=== PATIENT | female | born 1985 | race Caucasian/White ===

== ENCOUNTER → 2019-08-04 10:19 | Outpatient (CLI) | payer BC, OTHER, SELFPAY ==
[2019-08-04 11:10] LABS: Influenza A - CEPHEID Flu A NEGATIVE (NEGATIVE); Influenza B - CEPHEID Flu B NEGATIVE (NEGATIVE)
== END ==
PROVIDERS: Family Provider Physician Assistant Medical; PCP Physician Assistant Medical; Visit Provider Physician Assistant
DX: R68.89 Other general symptoms and signs (principal); J06.9 Acute upper respiratory infection, unspecified
CPT/HCPCS: 87070; 87502

== ENCOUNTER → 2020-03-12 14:44 | Outpatient (CLI) | payer OTHER, SELFPAY ==
--- NOTE | 2020-03-12 | DI.CT.S_ITS ---
PROCEDURE: CT CHEST W CON INDICATIONS: chest pain TECHNIQUE: After the administration of intravenous contrast, 5 mm thick sections acquired from the pulmonary apices to the posterior costophrenic angles. 1 mm axial lung, 5 mm thick coronal and sagittal reformats and 7 mm axial MIP were acquired. For radiation dose reduction, the following was used: automated exposure control, adjustment of mA and/or kV according to patient size. COMPARISON: None. FINDINGS: Image quality: Excellent. Scattered subsegmental atelectasis and/or scarring. No focal consolidation. A possible sub 5 mm calcified granuloma and scarring seen in the superior segment of the right lower lobe although technically indeterminate. No pleural effusions or pneumothorax. Central and peripheral airways are patent and normal in caliber. Mediastinum: Heart size is normal. No pericardial effusion. No mediastinal or hilar adenopathy by size criteria. Thoracic aorta and central pulmonary arteries are normal in size. Esophagus is normal in caliber. No hiatal hernia. Bones and chest wall: No suspicious bony lesions. No vertebral body compression fractures. No axillary or supraclavicular adenopathy by size criteria. Thyroid gland negative . Status post cholecystectomy. IMPRESSION: No acute abnormality. Presumed granulomatous changes in the superior segment of the right lower lobe although this could be confirmed with [address] chest given the absence of relevant comparison studies. Dictated by: Lloyd Muñiz M.D. on 03/12/2020 at 16:18 Approved by: Lloyd Muñiz M.D. on 03/12/2020 at 16:24
[2020-03-12 15:19] LABS: BUN Creatinine Ratio 19.7 (6-22); Blood Urea Nitrogen 13 mg/dL (7-17); Estimated Glomerular Filt Rate > 60.0 mL/min (>60)
== END ==
PROVIDERS: Family Provider Physician Assistant Medical; PCP Physician Assistant Medical; Referring Provider Obstetrics & Gynecology; Visit Provider Obstetrics & Gynecology
DX: R07.9 Chest pain, unspecified (principal); Z90.49 Acquired absence of other specified parts of digestive tract
CPT/HCPCS: 36415; 71260; 82565; 84520; Q9967

== ENCOUNTER 2020-08-03 15:04 | Emergency (ER) | payer BC, OTHER, SELFPAY ==
[2020-08-03 15:06] VITALS: BP 130/87; PULSE 105; RESP 20; TEMP 36.8; O2SAT 100
--- NOTE | 2020-08-03 15:14 | DI.RAD.S_ITS ---
PROCEDURE: XR KNEE RT 3V INDICATIONS: fell, heard a pop TECHNIQUE: 3 views of the knee were acquired. COMPARISON: None. FINDINGS: Bones: No fractures or dislocations. No suspicious bony lesions. There is a corticated ossicle adjacent to the tibial tubercle. Soft tissues: No joint effusion. No suspicious soft tissue calcifications. IMPRESSION: 1. No acute osseous abnormalities. 2. A corticated ossicle adjacent to the tibial tubercle. This finding may be associated with Guerita-Schlatter disease. Recommend clinical correlation. Dictated by: Kianna Rolle M.D. on 08/03/2020 at 16:45 Approved by: Kianna Rolle M.D. on 08/03/2020 at 16:47
[2020-08-03 15:53] LABS: INR 1.1 (0.9-1.3); Prothrombin Time 12.3 SECONDS (10.1-12.7)
[2020-08-03 15:56] LABS: PTT Partial Thromboplastin Tim 30 SECONDS (26.4-36.2)
[2020-08-03 16:00] LABS: Alanine Aminotransferase 24 IU/L (<35); Albumin 4.2 g/dL (3.5-5.0); Albumin Globulin Ratio 1.3 (1.0-2.8); Alkaline Phosphatase 82 U/L (38-126); Aspartate Aminotransferase 27 IU/L (14-36); BUN Creatinine Ratio 19.7 (6-22); Bilirubin Total 0.3 mg/dL (0.2-1.3); Blood Urea Nitrogen 13 mg/dL (7-17); Calcium 9.2 mg/dL (8.4-10.2); Carbon Dioxide 23 mmol/L (22-32); Chloride 101 mmol/L (98-107); Estimated Glomerular Filt Rate > 60.0 mL/min (>60); Globulin 3.3 g/dL (1.7-4.1); Glucose 234 mg/dL (70-100); HEMOLYSIS < 15 (0-50); Lipase 20 U/L (23-300); Potassium 3.9 mmol/L (3.4-5.1); Sodium 135 mmol/L (137-145); Total Protein 7.5 g/dL (6.3-8.2)
[2020-08-03 16:03] LABS: Add Manual Diff / Slide Review NO; Basophils Absolute Auto 100 /uL (0-100); Basophils Percent Auto 0.7 % (0-2); Eosinophils Absolute Auto 100 /uL (0-450); Eosinophils Percent Auto 1.4 % (2-4); Hematocrit 36.8 % (36-46); Hemoglobin 11.9 g/dL (12.0-16.0); Lymphocytes Absolute Auto 2200 /uL (1100-4500); Lymphocytes Percent Auto 24.9 % (25-40); Mean Corpuscular HGB Conc 32.5 % (30-36); Mean Corpuscular Hemoglobin 27.4 PG (26-34); Mean Corpuscular Volume 84.3 fL (80-100); Monocytes Absolute Auto 500 /uL (0-900); Monocytes Percent Auto 5.5 % (3-14); Neutrophils Absolute Auto 6100 /uL (1500-7000); Neutrophils Percent Auto 67.5 % (50-75); Platelet Count 288 X10^3/uL (150-400); Red Blood Cell Count 4.37 X10^6/uL (4.0-5.2); Red Cell Distribution Width 14.9 % (11.6-14.8)
[2020-08-03] MEDS: ONDANSETRON 4 MG ODT SL (17:52)
--- NOTE | 2020-08-03 19:15 | ED_ITS ---
HPI - Abdominal Pain General Chief Complaint: Abdominal Pain Stated Complaint: ABD PAIN LEFT PAIN HEAD INJURY Time Seen by Provider: 08/03/20 17:42 Source: patient Mode of arrival: Ambulatory Limitations: no limitations History of Present Illness HPI narrative: 34-year-old female comes emergency department complaint abdominal pain patient states started in the last 24 hours. She had 1 episode of nausea and vomiting overnight. Then had about 6 episodes of diarrhea. No melena, no hematochezia. She has had generalized abdominal pain but majority has been the left flank. Patient states she has not had any more emesis today. Her last bowel movement was earlier in the morning. She continues to have abdominal discomfort. She states feels like when she had pancreatitis but milder. She denies any frequency, dysuria urgency. Denies any vaginal bleeding or discharge. She states she has had a cholecystectomy, she had a prior ovarian torsion but did not have removal of the ovary. She has also had a CT which showed diverticulosis. Patient is on methotrexate for lupus which she states often give her some GI symptoms but not that significant. She was also skiing yesterday, she had multiple falls she did hit her head. She was helmeted did not have any loss of consciousness. She has had a mild ache in the back or her ponytail is. She also has some right knee pain. She has been able to weightbea r but it is uncomfortable. No numbness, tingling or weakness. She has tried ibuprofen with minimal improvement. Related Data Home Medications Medication Instructions Recorded Confirmed ibuprofen 800 mg PO TIDP PRN #0 03/21/17 sumatriptan succinate [Imitrex] 25 mg #0 03/21/17 Previous Rx's Medication Instructions Recorded meloxicam 7.5 mg PO BID #10 tab 08/03/20 Allergies Allergy/AdvReac Type Severity Reaction Status Date / Time No Known Allergies Allergy Uncoded 08/04/19 10:06 Review of Systems Review of Systems ROS Unobtainable: All systems reviewed & are unremarkable except as noted in HPI and below Patient History Medical History URI (upper respiratory infection) Social History Smoking Status: Current some day smoker Smoking Status: Current some day smoker Exam Narrative Exam Narrative: GENERAL: Alert and oriented x three, obese female in mild distress. HEENT: Head normocephalic, atraumatic, EOMI, pupils reactive, face symmetric, moist mucous membranes NECK: Supple, full range of motion CARDIOVASCULAR: Regular rate and rhythm without murmurs, rubs or gallops. RESPIRATORY: Breath sounds equal bilaterally, no wheezes rales or rhonchi. ABDOMEN: Soft, generalized tenderness. Normoactive bowel sounds all 4 quadrants. No guarding or rebound, rigidity, no mass, no bruit. : No CVA tenderness bilaterally. EXTREMITIES: Normal range of motion, no clubbing or edema. Neurovascularly intact. Patient has tenderness over the right that is nonspecific. No obvious swelling is appreciated. Patient does not have any ecchymosis. She has pain with laxity testing on the medial collateral ligament. 2+ pulses in her right lower extremity. Normal sensation. NEUROLOGICAL: Cranial nerves II through XII grossly intact. Moving all extremities SKIN: Warm, dry, no petechiae, no rashes or lesions. Initial Vital Signs Initial Vital Signs: Vital Signs Temperature 98.2 F 08/03/20 15:06 Pulse Rate 105 H 08/03/20 15:06 Respiratory Rate 20 08/03/20 15:06 Blood Pressure 130/87 08/03/20 15:06 Pulse Oximetry 100 08/03/20 15:06 Course Orders Ordered: Discontinued Medications Ketorolac Tromethamine (Ketorolac 60 Mg/2 Ml Vial) 30 mg IM NOW ONE Stop: 08/03/20 19:30 Last Admin: 08/03/20 19:57 Dose: 30 mg Documented by: GIULIANO Ondansetron HCl (Ondansetron 4 Mg Odt) 4 mg SL NOW ONE Stop: 08/03/20 17:31 Last Admin: 08/03/20 17:52 Dose: 4 mg Documented by: LENY Vital Signs Vital signs: Vital Signs - 8 hr 08/03/20 19:58 Pulse Rate 87 Respiratory Rate 16 Blood Pressure 128/76 Pulse Oximetry 97 MDM - Abdominal Pain Lab Data Attestation: I reviewed the patient's lab results. Result diagrams: 08/03/20 15:26 08/03/20 15:26 Labs: Lab Results 08/03/20 08/03/20 08/03/20 Range/Units 15:26 15:26 15:26 WBC 9.0 (4.5-11.0) X10^3/uL RBC 4.37 (4.0-5.2) X10^6/uL Hgb 11.9 L (12.0-16.0) g/dL Hct 36.8 (36-46) % MCV 84.3 (80-100) fL MCH 27.4 (26-34) PG MCHC 32.5 (30-36) % RDW 14.9 H (11.6-14.8) % Plt Count 288 (150-400) X10^3/uL Neut % (Auto) 67.5 (50-75) % Lymph % (Auto) 24.9 L (25-40) % Mcintosh % (Auto) 5.5 (3-14) % Eos % (Auto) 1.4 L (2-4) % Baso % (Auto) 0.7 (0-2) % Neut # (Auto) 6100 (4813-7125) /uL Lymph # (Auto) 2200 (8829-6020) /uL Mcintosh # (Auto) 500 (0-900) /uL Eos # (Auto) 100 (0-450) /uL Baso # (Auto) 100 (0-100) /uL PT 12.3 (10.1-12.7) SECONDS INR 1.1 (0.9-1.3) APTT 30 (26.4-36.2) SECONDS Sodium 135 L (137-145) mmol/L Potassium 3.9 (3.4-5.1) mmol/L Chloride 101 (98-107) mmol/L Carbon Dioxide 23 (22-32) mmol/L BUN 13 (7-17) mg/dL Creatinine 0.66 (0.52-1.04) mg/dL Estimated GFR > 60.0 (>60) mL/min BUN/Creatinine Ratio 19.7 (6-22) Glucose 234 H (70-100) mg/dL Calcium 9.2 (8.4-10.2) mg/dL Total Bilirubin 0.3 (0.2-1.3) mg/dL AST 27 (14-36) IU/L ALT 24 (<35) IU/L Alkaline Phosphatase 82 (38-126) U/L Total Protein 7.5 (6.3-8.2) g/dL Albumin 4.2 (3.5-5.0) g/dL Globulin 3.3 (1.7-4.1) g/dL Albumin/Globulin Ratio 1.3 (1.0-2.8) Lipase 20 L (23-300) U/L Point of care testing: Point of Care Testing Test Results Negative Urine Dip Bedside Urine Glucose 1000 mg/dl Bedside Urine Bilirubin - Negative Bedside Urine Ketone +/- 5 Urine Specific [place] 1.020 Bedside Urine pH 6.0 Bedside Urine Protein - Negative Bedside Urine Urobilinogen - Negative Bedside Urine Nitrite - Negative Bedside Urine Leukocytes - Negative Esterase Imaging Data Extremity x-ray #1: Radiologist's Impression: [address] [id number] ReportSigned Patient: Malena Sarmiento LMR#: [id number]: 1985Acct:[id number]/Sex: 35 / FDate of Service: 08/03/20Loc: EDAccession Number: [id number] Procedure: XR knee RT 3V Ordering Provider: Bunny Leyva MD PROCEDURE: XR KNEE RT 3V INDICATIONS: fell, heard a pop TECHNIQUE: 3 views of the knee were acquired. COMPARISON: None. FINDINGS: Bones: No fractures or dislocations. No suspicious bony lesions. There is a corticated ossicle adjacent to the tibial tubercle. Soft tissues: No joint effusion. No suspicious soft tissue calcifications. IMPRESSION: 1. No acute osseous abnormalities. 2. A corticated ossicle adjacent to the tibial tubercle. This finding may be associated with Guerita-Schlatter disease. Recommend clinical correlation. Dictated by: Kianna Rolle M.D. on 08/03/2020 at 16:45 Approved by: Kianna Rolle M.D. on 08/03/2020 at 16:47 [facility] Narrative Medical decision making narrative: This is a 35-year-old female who comes to the emergency department with complaint of multiple falls so skiing yesterday with right knee pain. Knee x-ray is negative. We did discuss she could have some internal derangement plan for watchful waiting, crutches as needed. RICE and NSAIDs. Patient has also had abdominal pain with vomiting and diarrhea that has resolved. Patient states abdominal pain is still present. Discussed pursuing imaging but at this time with her normal lab work she defers. We discussed wide differential if she continues to improve she does not need any specific follow- up but we discussed red flag symptoms and reasons to return. Her major lab abnormalities include a elevated glucose, she has ketones in her urine and glucose present. No signs of DKA. She is aware of her elevated blood sugars. Return precautions for abdominal pain. Plan for repeat imaging in 7-10 days if she does not have improvement. Discussed pain control plan for a dose of Toradol here and a prescription for meloxicam short-term. Patient feels comfortable with this plan. Discharge Plan Departure Patient Disposition: Home Clinical Impression: Abdominal pain, Knee pain Instructions: DI for Abdominal Pain-Adult Activity Restrictions/Additional Instructions: Follow up next several days if your symptoms are not improving. You may take meloxicam 1 tablet twice daily as needed for pain. Do not take this with ibuprofen. You may take this medication with Tylenol up to a 1000 mg every 8 hours. Prescription to [facility]. Weight bear as tolerated on your right lower extremity. . Elevated affected body part to decrease swelling. OK to use ice pack on the affected body part. Use for 15-20 minutes each time, for 5-6x per day. If you develop worsening pain, numbness, tingling, discoloration of the affected body part either see your doctor for an urgent re-assessment, or return to the Emergency Department. Return to the Emergency Department for any new or worsening symptoms. If you are having fevers greater 100.4 F, rapidly worsening abdominal or flank pain, persistent vomiting, black or bloody stools, persistent diarrhea or lightheadedness or passing-out please return to the emergency department. Prescriptions: New meloxicam 7.5 mg tablet 7.5 mg PO BID Qty: 10 RF: 0 No Action sumatriptan succinate [Imitrex] 25 MG tablet 25 mg Qty: 0 RF: 0 ibuprofen 800 MG tablet 800 mg PO TIDP PRNQty: 0 RF: 0 Referrals: Ivelisse Bender PA-C [Primary Care Provider] -
[2020-08-03] MEDS: KETOROLAC 60 MG/2 ML VIAL 30 MG IM (19:57)
[2020-08-03 19:58] VITALS: BP 128/76; PULSE 87; RESP 16; O2SAT 97
== END 2020-08-03 19:59 | disposition home or self-care (01) ==
PROVIDERS: Emergency Medicine; Emergency Provider Emergency Medicine; Family Provider Physician Assistant Medical; PCP Physician Assistant Medical
DX: R10.9 Unspecified abdominal pain (principal); M25.561 Pain in right knee; V00.321A Fall from snow-skis, initial encounter; R11.2 Nausea with vomiting, unspecified; R19.7 Diarrhea, unspecified; E66.9 Obesity, unspecified
CPT/HCPCS: 73562; 80053; 81003; 81025; 83690; 85025; 85610; 85730; 96372; 99281; 99284; J1885

== ENCOUNTER → 2020-09-16 16:24 | Outpatient (CLI) | payer OTHER, SELFPAY ==
--- NOTE | 2020-09-16 | DI.MRI.S_ITS ---
PROCEDURE: MR KNEE RT WO CON INDICATIONS: Pain in right knee TECHNIQUE: Noncontrast sagittal PD fast spin echo and T2 fast spin echo with fat saturation, sagittal 3-D FLASH with fat saturation; coronal T1 spin echo and PD fast spin echo with fat saturation, and axial PD fast spin echo with fat saturation through the knee. COMPARISON: [facility], CR, XR KNEE RT 3V, 08/03/2020, 15:13. FINDINGS: Image quality: Excellent. Menisci: Amorphous high signal intensity within the medial meniscal body and posterior horn is present demonstrating no definite articular surface extension, consistent with myxoid degeneration. The medial and lateral menisci demonstrate otherwise normal morphology and internal signal. The meniscal root ligaments appear intact. Cruciate ligaments: The anterior and posterior cruciate ligaments appear intact. Medial structures: Moderate grade tearing of the anterior fibers of the medial collateral ligament. Visualized portions of the pes anserinus tendons appear normal. No abnormal bursal fluid. Lateral structures: The lateral collateral ligament, long and short heads of the biceps femoris tendon appear intact. The popliteus tendon appears normal. Iliotibial band appears normal. Anterior structures: The quadriceps and patellar tendons appear intact. Mild T2 signal elevation within the quadriceps and patellar tendons at the patellar insertion sites. Patellar alignment is normal. No femoral trochlear dysplasia or ventral trochlear prominence. Mild edema in the superolateral aspect of the infrapatellar fat pad. Bones and cartilage: No bone marrow contusions or fractures. Chronic fragmentation of the anterior tibial tubercle. Articular cartilage fibrillation overlies the lateral patellar facet. Moderate articular cartilage loss overlies the lateral patellar facet inferiorly. Mild articular cartilage loss overlies the weight-bearing aspects of the medial femoral condyle and medial tibial plateau. Joint space: There is physiologic knee joint fluid. No Laird's cyst. Normal appearing synovial plicae are incidentally noted. IMPRESSION: 1. Partial thickness medial collateral ligament tear. 2. Findings consistent with lateral patellofemoral friction syndrome in the appropriate clinical setting. 3. Medial and patellofemoral compartment articular cartilage loss. 4. Mild quadriceps and patellar tendinopathy. New line 5. Remote Guerita-Schlatter disease. Dictated by: Joshua Dong M.D. on 09/17/2020 at 10:21 Approved by: Joshua Dong M.D. on 09/17/2020 at 10:25
== END ==
PROVIDERS: Family Provider Physician Assistant Medical; PCP Physician Assistant Medical; Referring Provider Physician Assistant Medical; Visit Provider Physician Assistant Medical
DX: M25.561 Pain in right knee (principal); S83.411A Sprain of medial collateral ligament of right knee, initial encounter
CPT/HCPCS: 73721

== ENCOUNTER 2022-07-20 13:23 | Emergency (ER) | payer OTHER, SELFPAY ==
[2022-07-20] VITALS (19 sets, daily range): BP systolic 111–158; BP diastolic 68–122; PULSE 77–111; RESP 13–26; TEMP 37.1; O2SAT 94–99; BMI 42.0
--- NOTE | 2022-07-20 13:33 | ED.ABDPAIN ---
HPI - Abdominal Pain <Dewey Santa PA-C - Last Filed: 07/20/22 16:08> General Chief Complaint: Abdominal Pain Stated Complaint: N/V/D Time Seen by Provider: 07/20/22 13:27 History of Present Illness HPI narrative: This is a 37-year-old female with a history of a cholecystectomy as well as the left ovarian torsion presents to the emergency department complaining of right lower quadrant pain, vomiting, diarrhea for the last 5 days. States she is had multiple episodes of diarrhea and vomiting and day, no blood noted. States that the abdominal pain is worse when she moves. Also states she is had a fever with a high of 101, intermittently. Patient denies any vaginal bleeding or discharge but does state that she is been getting yeast infections more frequently. Patient states that her left ovarian torsion did not require removal of the ovary but they were able to ?twisted?. Patient also has history of cholecystectomy as well as a hiatal hernia repair. Related Data Home Medications Medication Instructions Recorded Confirmed ibuprofen 800 mg tablet 800 mg PO TIDP PRN ##0 03/21/17 sumatriptan succinate 25 mg tablet 25 mg ##0 03/21/17 (Imitrex) Previous Rx's Medication Instructions Recorded meloxicam 7.5 mg tablet 7.5 mg PO BID #10 tabs 08/03/20 azithromycin 500 mg tablet 500 mg PO DAILY 3 days #3 tabs 07/20/22 azithromycin 500 mg tablet 500 mg PO DAILY 3 days #3 tabs 07/20/22 Allergies Allergy/AdvReac Type Severity Reaction Status Date / Time verapamil Allergy Verified 07/20/22 13:36 No Known Allergies Allergy Uncoded 08/04/19 10:06 Review of Systems <Dewey Santa PA-C - Last Filed: 07/20/22 16:08> Review of Systems Narrative: GENERAL: Reports fevers, Denies chills, fatigue, malaise, , sweats. HEENT: Denies sinus pain, ear pain, sore throat, difficulty swallowing, dizziness. RESPIRATORY: Denies dyspnea, cough, wheezing, hemoptysis, sputum. CARDIOVASCULAR: Denies chest pain, palpitations, orthopnea, edema, GASTROINTESTINAL: Reports abdominal pain, vomiting, diarrhea, denies blood in the stool or vomit : Denies dysuria, frequency, incontinence, hematuria, urinary retention. MUSCULOSKELETAL: denies weakness, joint pain, or bony pain SKIN: Denies rash, skin lesions, or other NEUROLOGIC: Denies weakness, headache, numbness, change in speech, confusion, seizures, incoordination. PSYCHIATRIC: No concerning psychosocial issues. 12 point review of systems is negative except for those stated above Patient History <Dewey Santa PA-C - Last Filed: 07/20/22 16:08> Medical History URI (upper respiratory infection) Social History Smoking Status: Current some day smoker Smoking Status: Current some day smoker Exam <Dewey Santa PA-C - Last Filed: 07/20/22 16:08> Narrative Exam Narrative: GENERAL: Well-developed patient, in mild distress. HEAD: Atraumatic. Normocephalic. EYES: Pupils equal round and reactive. Extraocular motions intact. No scleral icterus. No injection or drainage. ENT: Nose without bleeding, purulent drainage. Throat without erythema, tonsillar hypertrophy or exudate. Airway patent. NECK: Trachea midline. Non tender CARDIOVASCULAR: Regular rate and rhythm without murmurs, gallops, or rubs. RESPIRATORY: Clear to auscultation. Breath sounds equal bilaterally. No wheezes, rales, or rhonchi. GASTROINTESTINAL: Right lower quadrant tenderness palpation, nondistended EXTREMITIES: No edema or joint tenderness. BACK: Nontender without deformity or crepitance. No flank tenderness. NEURO: AOx3. SKIN: No rash or erythema of visible areas Initial Vital Signs Initial Vital Signs: Vital Signs Temperature 98.8 F 07/20/22 13:30 Pulse Rate 104 H 07/20/22 13:30 Respiratory Rate 15 07/20/22 13:30 Blood Pressure 111/69 07/20/22 13:30 Pulse Oximetry 97 07/20/22 13:30 Oxygen Delivery Method 07/20/22 13:30 <Samira Ruano DO - Last Filed: 07/21/22 07:24> Initial Vital Signs Initial Vital Signs: Vital Signs Temperature 98.8 F 07/20/22 13:30 Pulse Rate 104 H 07/20/22 13:30 Respiratory Rate 15 07/20/22 13:30 Blood Pressure 111/69 07/20/22 13:30 Pulse Oximetry 97 07/20/22 13:30 Oxygen Delivery Method 07/20/22 13:30 Course <Dewey Santa PA-C - Last Filed: 07/20/22 16:08> Orders Ordered: Discontinued Medications Sodium Chloride (Normal Saline 0.9%) 1,000 mls @ 1,000 mls/hr IV BOLUS ONE Stop: 07/20/22 14:49 Last Infusion: 07/20/22 15:33 Dose: 0 mls/hr Documented By: Admin: 07/20/22 14:07 Dose: 1,000 mls/hr Documented By: RB Metoclopramide HCl (Metoclopramide 10 Mg/2 Ml Inj) 5 mg IV NOW ONE Stop: 07/20/22 13:59 Last Admin: 07/20/22 14:15 Dose: Not Given Documented By: RB Metoclopramide HCl (Metoclopramide 10 Mg/2 Ml Inj) 10 mg IV NOW ONE Stop: 07/20/22 14:04 Last Admin: 07/20/22 14:06 Dose: 10 mg Documented By: RB Morphine Sulfate (Morphine 4 Mg/Ml Inj) 4 mg IV NOW ONE Stop: 07/20/22 13:59 Last Admin: 07/20/22 14:06 Dose: 4 mg Documented By: RB Morphine Sulfate (Morphine 4 Mg/Ml Inj) 4 mg IV NOW ONE Stop: 07/20/22 15:05 Last Admin: 07/20/22 15:15 Dose: 4 mg Documented By: MEGAN Ondansetron HCl (Ondansetron 4 Mg/2 Ml Inj) 4 mg IV NOW PRN PRN Reason: Nausea And Vomiting Vital Signs Vital signs: Vital Signs - 8 hr 07/20/22 13:30 07/20/22 13:31 07/20/22 13:31 Temperature 98.8 F Pulse Rate 104 H 110 H Respiratory Rate 15 Blood Pressure 111/69 156/101 H Pulse Oximetry 97 97 Oxygen Delivery Method Room Air 07/20/22 13:32 07/20/22 13:32 07/20/22 13:34 Temperature Pulse Rate 111 H 107 H Respiratory Rate 21 Blood Pressure 158/122 H Pulse Oximetry 97 97 Oxygen Delivery Method 07/20/22 13:34 07/20/22 14:00 07/20/22 14:00 Temperature Pulse Rate 96 H Respiratory Rate 21 Blood Pressure 111/69 118/73 Pulse Oximetry 97 Oxygen Delivery Method <Samira Ruano DO - Last Filed: 07/21/22 07:24> Orders Ordered: Discontinued Medications Sodium Chloride (Normal Saline 0.9%) 1,000 mls @ 1,000 mls/hr IV BOLUS ONE Stop: 07/20/22 14:49 Last Infusion: 07/20/22 15:33 Dose: 0 mls/hr Documented By: Admin: 07/20/22 14:07 Dose: 1,000 mls/hr Documented By: RB Metoclopramide HCl (Metoclopramide 10 Mg/2 Ml Inj) 5 mg IV NOW ONE Stop: 07/20/22 13:59 Last Admin: 07/20/22 14:15 Dose: Not Given Documented By: RB Metoclopramide HCl (Metoclopramide 10 Mg/2 Ml Inj) 10 mg IV NOW ONE Stop: 07/20/22 14:04 Last Admin: 07/20/22 14:06 Dose: 10 mg Documented By: RB Morphine Sulfate (Morphine 4 Mg/Ml Inj) 4 mg IV NOW ONE Stop: 07/20/22 13:59 Last Admin: 07/20/22 14:06 Dose: 4 mg Documented By: RB Morphine Sulfate (Morphine 4 Mg/Ml Inj) 4 mg IV NOW ONE Stop: 07/20/22 15:05 Last Admin: 07/20/22 15:15 Dose: 4 mg Documented By: MEGAN Ondansetron HCl (Ondansetron 4 Mg/2 Ml Inj) 4 mg IV NOW PRN PRN Reason: Nausea And Vomiting Vital Signs Vital signs: Vital Signs - 8 hr 07/20/22 13:30 07/20/22 13:31 07/20/22 13:31 Temperature 98.8 F Pulse Rate 104 H 110 H Respiratory Rate 15 Blood Pressure 111/69 156/101 H Pulse Oximetry 97 97 Oxygen Delivery Method Room Air 07/20/22 13:32 07/20/22 13:32 07/20/22 13:34 Temperature Pulse Rate 111 H 107 H Respiratory Rate 21 Blood Pressure 158/122 H Pulse Oximetry 97 97 Oxygen Delivery Method 07/20/22 13:34 07/20/22 14:00 07/20/22 14:00 Temperature Pulse Rate 96 H Respiratory Rate 21 Blood Pressure 111/69 118/73 Pulse Oximetry 97 Oxygen Delivery Method MDM - Abdominal Pain <Dewey Santa PA-C - Last Filed: 07/20/22 16:08> Lab Data 07/20/22 13:54 07/20/22 13:54 Labs: Lab Results 07/20/22 07/20/22 07/20/22 Range/Units 13:27 13:54 13:54 WBC 11.1 H (4.5-11.0) X10^3/uL RBC 4.39 (4.0-5.2) X10^6/uL Hgb 13.2 (12.0-16.0) g/dL Hct 39.5 (36-46) % MCV 89.9 (80-100) fL MCH 30.1 (26-34) PG MCHC 33.5 (30-36) % RDW 16.0 H (11.6-14.8) % Plt Count 275 (150-400) X10^3/uL Neut % (Auto) 71.2 (50-75) % Lymph % (Auto) 22.0 L (25-40) % Bond % (Auto) 5.6 (3-14) % Eos % (Auto) 0.7 L (2-4) % Baso % (Auto) 0.5 (0-2) % Neut # (Auto) 7900 H (8531-8851) /uL Lymph # (Auto) 2500 (6357-3234) /uL Bond # (Auto) 600 (0-900) /uL Eos # (Auto) 100 (0-450) /uL Baso # (Auto) 100 (0-100) /uL Sodium (137-145) mmol/L Potassium (3.4-5.1) mmol/L Chloride (98-107) mmol/L Carbon Dioxide (22-32) mmol/L BUN (7-17) mg/dL Creatinine (0.52-1.04) mg/dL Estimated GFR (>60) mL/min BUN/Creatinine Ratio (6-22) Glucose (70-100) mg/dL Calcium (8.4-10.2) mg/dL Magnesium 1.7 (1.6-2.3) mg/dL Total Bilirubin (0.2-1.3) mg/dL AST (14-36) IU/L ALT (<35) IU/L Alkaline Phosphatase (38-126) U/L Total Protein (6.3-8.2) g/dL Albumin (3.5-5.0) g/dL Globulin (1.7-4.1) g/dL Albumin/Globulin Ratio (1.0-2.8) Lipase (23-300) U/L Urine Color Yellow Urine Appearance Clear Urine pH 5.5 (4.5-8.0) Ur Specific [place] >=1.030 H (1.000-1.035) Urine Protein Negative (Negative) Urine Glucose (UA) 3+ H (Negative) g/dL Urine Ketones Trace H (NEGATIVE) Urine Occult Blood Negative (Negative) Urine Nitrate Negative (Negative) Urine Bilirubin Negative (NEGATIVE) Urine Urobilinogen 0.2 (0.2) E.U./dL Ur Leukocyte Esterase Negative (NEGATIVE) Urine RBC None seen (0-5/HPF) Urine WBC 1-5/hpf (0-5/HPF) Ur Squamous Epith Cells 5-10 /hpf H (0-5/HPF) Urine Bacteria None seen (None) Ur Culture Indicated? Cult not indicated 07/20/22 Range/Units 13:54 WBC (4.5-11.0) X10^3/uL RBC (4.0-5.2) X10^6/uL Hgb (12.0-16.0) g/dL Hct (36-46) % MCV (80-100) fL MCH (26-34) PG MCHC (30-36) % RDW (11.6-14.8) % Plt Count (150-400) X10^3/uL Neut % (Auto) (50-75) % Lymph % (Auto) (25-40) % Bond % (Auto) (3-14) % Eos % (Auto) (2-4) % Baso % (Auto) (0-2) % Neut # (Auto) (1001-3400) /uL Lymph # (Auto) (6934-7764) /uL Bond # (Auto) (0-900) /uL Eos # (Auto) (0-450) /uL Baso # (Auto) (0-100) /uL Sodium 135 L (137-145) mmol/L Potassium 3.7 (3.4-5.1) mmol/L Chloride 98 (98-107) mmol/L Carbon Dioxide 26 (22-32) mmol/L BUN 7 (7-17) mg/dL Creatinine 0.56 (0.52-1.04) mg/dL Estimated GFR > 60 (>60) mL/min BUN/Creatinine Ratio 12.5 (6-22) Glucose 256 H (70-100) mg/dL Calcium 8.8 (8.4-10.2) mg/dL Magnesium (1.6-2.3) mg/dL Total Bilirubin 0.6 (0.2-1.3) mg/dL AST 20 (14-36) IU/L ALT 19 (<35) IU/L Alkaline Phosphatase 100 (38-126) U/L Total Protein 7.8 (6.3-8.2) g/dL Albumin 4.1 (3.5-5.0) g/dL Globulin 3.7 (1.7-4.1) g/dL Albumin/Globulin Ratio 1.1 (1.0-2.8) Lipase 25 (23-300) U/L Urine Color Urine Appearance Urine pH (4.5-8.0) Ur Specific [place] (1.000-1.035) Urine Protein (Negative) Urine Glucose (UA) (Negative) g/dL Urine Ketones (NEGATIVE) Urine Occult Blood (Negative) Urine Nitrate (Negative) Urine Bilirubin (NEGATIVE) Urine Urobilinogen (0.2) E.U./dL Ur Leukocyte Esterase (NEGATIVE) Urine RBC (0-5/HPF) Urine WBC (0-5/HPF) Ur Squamous Epith Cells (0-5/HPF) Urine Bacteria (None) Ur Culture Indicated? 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 Procedure: US pelvic limited Ordering Provider: Dewey Santa P.A-C PROCEDURE:? US PELVIC LIMITED ? INDICATIONS:? RIGHT LOWER QUADRANT PAIN HX OF OVARIAN TORSION ? TECHNIQUE:? Real-time transabdominal scanning was performed of the pelvic organs, with image documentation.? ? COMPARISON:? None. ? FINDINGS:? ? Uterus:? Uterus is anteverted and normal in size at 7.2 x 3.5 x 4.7 cm. The myometrium is within normal limits. ? The endometrium measures 2 mm combined thickness.? No focal uterine mass ? Ovaries:? The right ovary measures 2.6 x 1.7 x 2.6 cm, with a calculated ovarian volume of 6 cc.? Anechoic right ovarian focus measuring 15 mm, suggestive of a dominant follicle.? The left ovary is not seen. ? Other:? No pathologic free abdominal or pelvic fluid. ? ? IMPRESSION:? No acute process. ? ? We strive to produce accurate, complete, and clear reports of imaging services. To assist us in improving patient care, this report was composed using standard report templates and voice recognition software. Therefore, it may contain abnormal punctuation, insertions and/or omissions. Occasional wrong-word or sound-alike substitutions may occur. Though we review the report and make efforts to correct it, we do recommend that the report be read carefully in proper context to recognize any text inaccuracies. ? ? Dictated by: Joshua Dong M.D. on 07/20/2022 at 14:42 ? ? Approved by: Joshua Dong M.D. on 07/20/2022 at 14:43 ? CT scan - abdomen/pelvis: Radiologist's Impression: [place] [address] CT Scan Report Signed Patient: Malena Sarmiento MR#: [id number] : 1985 Acct:[id number] Age/Sex: 37 / F Date of Service: 07/20/22 Loc: ED Accession Number: [id number] ?? Procedure: CT abdomen pelvis w con Ordering Provider: Dewey Santa P.A-C PROCEDURE:? CT ABDOMEN PELVIS W CON ? INDICATIONS:? RLQ pain ? TECHNIQUE:? After the administration of intravenous contrast, axial sections acquired from the lung bases to the pubic symphysis.? Coronal and sagittal reformats were performed.? For radiation dose reduction, the following was used:? automated exposure control, adjustment of mA and/or kV according to patient size.? ? COMPARISON:? None. ? FINDINGS:? Image quality:? Excellent.? ? Lung bases:? Unremarkable. Heart:? No significant findings. ? ABDOMEN: Liver:? Unremarkable.? ? Gallbladder:? Surgically absent? ? Biliary ducts:? Unremarkable.? ? Pancreas:? Unremarkable.? ? Spleen:? Unremarkable.? ? Adrenal Glands:? Unremarkable.? ? Kidneys and Ureters:? No hydronephrosis.? Nonobstructing 2 mm calcification within the inferior pole left kidney. ? Stomach and Bowel:? Stomach, small bowel loops, and colon are unremarkable.? Normal appendix. Peritoneum:? No abnormal intraperitoneal fluid.? No free air.? ? Ventral Wall: ? No hernias.? Abdominal Nodes:? No retroperitoneal or mesenteric adenopathy by size criteria.? Vessels:? Aorta and inferior vena cava are normal in size.? ? PELVIS: Pelvic Organs:? Unremarkable.? ? Bladder:? Unremarkable.? ? Pelvic Nodes: No enlarged lymph nodes.? Miscellaneous: No hernias are seen. ? ? ? Bones:? Unremarkable.? IMPRESSION:? 1. No acute process. 2. Nonobstructing left renal calcification. 3. Normal appendix. ? ? ? Dictated by: Joshua Dong M.D. on 07/20/2022 at 15:00 ? ? Approved by: Joshua Dong M.D. on 07/20/2022 at 15:01 ? MDM Narrative Medical decision making narrative: MDM * differential diagnosis includes but not limited to appendicitis, ovarian torsion, ovarian cyst, cholecystitis, pancreatitis, kidney stone * Prior records reviewed: Prior records reviewed showing the patient has a history left ovarian torsion as well as cholecystectomy * My lab interpretation: Very mild leukocytosis of 11.0, otherwise unremarkable * My imgaing interpretation: Pelvic ultrasound as well as abdominal and pelvic CT unremarkable as well * Clinical Decision Rules/Scores evaluated: None * Independent discussions with: None ED Course: This is a 37-year-old female presents emergency department due to 5 days of vomiting and diarrhea as well as right lower quadrant pain on exam. A pelvic ultrasound and CT abdomen and pelvis were ordered which showed no abnormal findings. Low concern for any kind of appendicitis or ovarian torsion based on these results. On further discussion with the patient patient did report having some ?bad chicken? at a wedding just prior to the symptoms beginning. We will treat for possible bacterial gastroenteritis as patient does report having fevers along with the vomiting and diarrhea. Shared Decision Making: Discussed plan with patient who is agreeable to the plan Social Considerations: None Disposition: Discharged to home <Samira Ruano DO - Last Filed: 07/21/22 07:24> Lab Data Labs: Lab Results 07/20/22 07/20/22 07/20/22 Range/Units 13:27 13:54 13:54 WBC 11.1 H (4.5-11.0) X10^3/uL RBC 4.39 (4.0-5.2) X10^6/uL Hgb 13.2 (12.0-16.0) g/dL Hct 39.5 (36-46) % MCV 89.9 (80-100) fL MCH 30.1 (26-34) PG MCHC 33.5 (30-36) % RDW 16.0 H (11.6-14.8) % Plt Count 275 (150-400) X10^3/uL Neut % (Auto) 71.2 (50-75) % Lymph % (Auto) 22.0 L (25-40) % Bond % (Auto) 5.6 (3-14) % Eos % (Auto) 0.7 L (2-4) % Baso % (Auto) 0.5 (0-2) % Neut # (Auto) 7900 H (5239-0699) /uL Lymph # (Auto) 2500 (3320-6867) /uL Bond # (Auto) 600 (0-900) /uL Eos # (Auto) 100 (0-450) /uL Baso # (Auto) 100 (0-100) /uL Sodium (137-145) mmol/L Potassium (3.4-5.1) mmol/L Chloride (98-107) mmol/L Carbon Dioxide (22-32) mmol/L BUN (7-17) mg/dL Creatinine (0.52-1.04) mg/dL Estimated GFR (>60) mL/min BUN/Creatinine Ratio (6-22) Glucose (70-100) mg/dL Calcium (8.4-10.2) mg/dL Magnesium 1.7 (1.6-2.3) mg/dL Total Bilirubin (0.2-1.3) mg/dL AST (14-36) IU/L ALT (<35) IU/L Alkaline Phosphatase (38-126) U/L Total Protein (6.3-8.2) g/dL Albumin (3.5-5.0) g/dL Globulin (1.7-4.1) g/dL Albumin/Globulin Ratio (1.0-2.8) Lipase (23-300) U/L Urine Color Yellow Urine Appearance Clear Urine pH 5.5 (4.5-8.0) Ur Specific [place] >=1.030 H (1.000-1.035) Urine Protein Negative (Negative) Urine Glucose (UA) 3+ H (Negative) g/dL Urine Ketones Trace H (NEGATIVE) Urine Occult Blood Negative (Negative) Urine Nitrate Negative (Negative) Urine Bilirubin Negative (NEGATIVE) Urine Urobilinogen 0.2 (0.2) E.U./dL Ur Leukocyte Esterase Negative (NEGATIVE) Urine RBC None seen (0-5/HPF) Urine WBC 1-5/hpf (0-5/HPF) Ur Squamous Epith Cells 5-10 /hpf H (0-5/HPF) Urine Bacteria None seen (None) Ur Culture Indicated? Cult not indicated 07/20/22 Range/Units 13:54 WBC (4.5-11.0) X10^3/uL RBC (4.0-5.2) X10^6/uL Hgb (12.0-16.0) g/dL Hct (36-46) % MCV (80-100) fL MCH (26-34) PG MCHC (30-36) % RDW (11.6-14.8) % Plt Count (150-400) X10^3/uL Neut % (Auto) (50-75) % Lymph % (Auto) (25-40) % Bond % (Auto) (3-14) % Eos % (Auto) (2-4) % Baso % (Auto) (0-2) % Neut # (Auto) (4037-7795) /uL Lymph # (Auto) (3388-2860) /uL Bond # (Auto) (0-900) /uL Eos # (Auto) (0-450) /uL Baso # (Auto) (0-100) /uL Sodium 135 L (137-145) mmol/L Potassium 3.7 (3.4-5.1) mmol/L Chloride 98 (98-107) mmol/L Carbon Dioxide 26 (22-32) mmol/L BUN 7 (7-17) mg/dL Creatinine 0.56 (0.52-1.04) mg/dL Estimated GFR > 60 (>60) mL/min BUN/Creatinine Ratio 12.5 (6-22) Glucose 256 H (70-100) mg/dL Calcium 8.8 (8.4-10.2) mg/dL Magnesium (1.6-2.3) mg/dL Total Bilirubin 0.6 (0.2-1.3) mg/dL AST 20 (14-36) IU/L ALT 19 (<35) IU/L Alkaline Phosphatase 100 (38-126) U/L Total Protein 7.8 (6.3-8.2) g/dL Albumin 4.1 (3.5-5.0) g/dL Globulin 3.7 (1.7-4.1) g/dL Albumin/Globulin Ratio 1.1 (1.0-2.8) Lipase 25 (23-300) U/L Urine Color Urine Appearance Urine pH (4.5-8.0) Ur Specific [place] (1.000-1.035) Urine Protein (Negative) Urine Glucose (UA) (Negative) g/dL Urine Ketones (NEGATIVE) Urine Occult Blood (Negative) Urine Nitrate (Negative) Urine Bilirubin (NEGATIVE) Urine Urobilinogen (0.2) E.U./dL Ur Leukocyte Esterase (NEGATIVE) Urine RBC (0-5/HPF) Urine WBC (0-5/HPF) Ur Squamous Epith Cells (0-5/HPF) Urine Bacteria (None) Ur Culture Indicated? Point of care testing: Point of Care Testing Test Results Negative Discharge Plan Departure Patient Disposition: Home Clinical Impression: Gastroenteritis Instructions: [place] Diet, DI for Bacterial Gastroenteritis -- Adult Activity Restrictions/Additional Instructions: Thank you for coming to the [facility] Emergency Department today. Your ultrasound CT were reassuring. There was no evidence of appendicitis or the ovarian torsion that you had in the past. Patient history will treat for possible bacterial ?stomach bug?. Please take antibiotics as prescribed. Please continue to drink plenty of fluids and eat a bland liquid diet until your symptoms improve. I hope you feel better soon. Prescriptions: New azithromycin 500 mg tablet 500 mg PO DAILY 3 Days Qty: 3 0RF azithromycin 500 mg tablet 500 mg PO DAILY 3 Days Qty: 3 0RF No Action sumatriptan succinate [Imitrex] 25 MG tablet 25 mg Qty: 0 ibuprofen 800 MG tablet 800 mg PO TIDP PRNQty: 0 meloxicam 7.5 mg tablet 7.5 mg PO BID Qty: 10 0RF Referrals: Ivelisse Bender PA-C [Primary Care Provider] - Stand Alone Forms: Patient Portal/API <Samira Ruano DO - Last Filed: 07/21/22 07:24> Cosign ED Attending Cosignature Attestation: I was immediately available in the department for consultation. Documentation has been reviewed.
--- NOTE | 2022-07-20 13:52 | DI.CT.S_ITS ---
PROCEDURE: CT ABDOMEN PELVIS W CON INDICATIONS: RLQ pain TECHNIQUE: After the administration of intravenous contrast, axial sections acquired from the lung bases to the pubic symphysis. Coronal and sagittal reformats were performed. For radiation dose reduction, the following was used: automated exposure control, adjustment of mA and/or kV according to patient size. COMPARISON: None. FINDINGS: Image quality: Excellent. Lung bases: Unremarkable. Heart: No significant findings. ABDOMEN: Liver: Unremarkable. Gallbladder: Surgically absent Biliary ducts: Unremarkable. Pancreas: Unremarkable. Spleen: Unremarkable. Adrenal Glands: Unremarkable. Kidneys and Ureters: No hydronephrosis. Nonobstructing 2 mm calcification within the inferior pole left kidney. Stomach and Bowel: Stomach, small bowel loops, and colon are unremarkable. Normal appendix. Peritoneum: No abnormal intraperitoneal fluid. No free air. Ventral Wall: No hernias. Abdominal Nodes: No retroperitoneal or mesenteric adenopathy by size criteria. Vessels: Aorta and inferior vena cava are normal in size. PELVIS: Pelvic Organs: Unremarkable. Bladder: Unremarkable. Pelvic Nodes: No enlarged lymph nodes. Miscellaneous: No hernias are seen. Bones: Unremarkable. IMPRESSION: 1. No acute process. 2. Nonobstructing left renal calcification. 3. Normal appendix. Dictated by: Joshua Dong M.D. on 07/20/2022 at 15:00 Approved by: Joshua Dong M.D. on 07/20/2022 at 15:01
--- NOTE | 2022-07-20 13:52 | DI.US.S_ITS ---
PROCEDURE: US PELVIC LIMITED INDICATIONS: RIGHT LOWER QUADRANT PAIN HX OF OVARIAN TORSION TECHNIQUE: Real-time transabdominal scanning was performed of the pelvic organs, with image documentation. COMPARISON: None. FINDINGS: Uterus: Uterus is anteverted and normal in size at 7.2 x 3.5 x 4.7 cm. The myometrium is within normal limits. The endometrium measures 2 mm combined thickness. No focal uterine mass Ovaries: The right ovary measures 2.6 x 1.7 x 2.6 cm, with a calculated ovarian volume of 6 cc. Anechoic right ovarian focus measuring 15 mm, suggestive of a dominant follicle. The left ovary is not seen. Other: No pathologic free abdominal or pelvic fluid. IMPRESSION: No acute process. We strive to produce accurate, complete, and clear reports of imaging services. To assist us in improving patient care, this report was composed using standard report templates and voice recognition software. Therefore, it may contain abnormal punctuation, insertions and/or omissions. Occasional wrong-word or sound-alike substitutions may occur. Though we review the report and make efforts to correct it, we do recommend that the report be read carefully in proper context to recognize any text inaccuracies. Dictated by: Joshua Dong M.D. on 07/20/2022 at 14:42 Approved by: Joshua Dong M.D. on 07/20/2022 at 14:43
[2022-07-20 13:56] LABS: Appearance Urine UA CLEAR; Bilirubin Urine UA NEGATIVE (NEGATIVE); Color Urine UA YELLOW; Glucose Urine UA 3+ g/dL (Negative); Ketones Urine UA TRACE (NEGATIVE); Leukocyte Esterase Urine UA NEGATIVE (NEGATIVE); Nitrite Urine UA NEGATIVE (Negative); Occult Blood Urine UA NEGATIVE (Negative); Protein Urine UA NEGATIVE (Negative); Specific Gravity Urine UA >=1.030 (1.000-1.035); Urobilinogen Urine UA 0.2 E.U./dL (0.2)
[2022-07-20 13:59] LABS: pH Urine UA 5.5 (4.5-8.0)
[2022-07-20] MEDS: MORPHINE 4 MG/ML INJ IV ×2 (14:06→15:15)
[2022-07-20] MEDS: METOCLOPRAMIDE 10 MG/2 ML INJ IV (14:06)
[2022-07-20] MEDS: SODIUM CHLORIDE 0.9% 1,000 ML 1000 ML IV (14:07)
[2022-07-20 14:08] LABS: Bacteria Urine None Seen; Culture Indicated Urine Cult Not Indicated; RBC Urine None Seen (0-5/HPF); Squamous Epithelial Cell Urine 5-10 /HPF (0-5/HPF); WBC Urine 1-5/HPF (0-5/HPF)
[2022-07-20 14:13] LABS: Add Manual Diff / Slide Review NO; Basophils Absolute Auto 100 /uL (0-100); Basophils Percent Auto 0.5 % (0-2); Eosinophils Absolute Auto 100 /uL (0-450); Eosinophils Percent Auto 0.7 % (2-4); Hematocrit 39.5 % (36-46); Hemoglobin 13.2 g/dL (12.0-16.0); Lymphocytes Absolute Auto 2500 /uL (1100-4500); Mean Corpuscular HGB Conc 33.5 % (30-36); Mean Corpuscular Hemoglobin 30.1 PG (26-34); Mean Corpuscular Volume 89.9 fL (80-100); Monocytes Absolute Auto 600 /uL (0-900); Monocytes Percent Auto 5.6 % (3-14); Neutrophils Absolute Auto 7900 /uL (1500-7000); Neutrophils Percent Auto 71.2 % (50-75); Platelet Count 275 X10^3/uL (150-400); Red Blood Cell Count 4.39 X10^6/uL (4.0-5.2); White Blood Cell Count 11.1 X10^3/uL (4.5-11.0)
[2022-07-20 14:30] LABS: Magnesium 1.7 mg/dL (1.6-2.3)
[2022-07-20 14:31] LABS: Alanine Aminotransferase 19 IU/L (<35); Albumin 4.1 g/dL (3.5-5.0); Albumin Globulin Ratio 1.1 (1.0-2.8); Alkaline Phosphatase 100 U/L (38-126); Aspartate Aminotransferase 20 IU/L (14-36); BUN Creatinine Ratio 12.5 (6-22); Bilirubin Total 0.6 mg/dL (0.2-1.3); Blood Urea Nitrogen 7 mg/dL (7-17); Calcium 8.8 mg/dL (8.4-10.2); Carbon Dioxide 26 mmol/L (22-32); Chloride 98 mmol/L (98-107); Estimated Glomerular Filt Rate > 60 mL/min (>60); Globulin 3.7 g/dL (1.7-4.1); Glucose 256 mg/dL (70-100); HEMOLYSIS < 15 (0-50); Lipase 25 U/L (23-300); Potassium 3.7 mmol/L (3.4-5.1); Sodium 135 mmol/L (137-145); Total Protein 7.8 g/dL (6.3-8.2)
== END 2022-07-20 16:50 | disposition home or self-care (01) ==
PROVIDERS: Emergency Provider Physician Assistant Medical; Family Provider Physician Assistant Medical; PCP Physician Assistant Medical
DX: K52.9 Noninfective gastroenteritis and colitis, unspecified (principal)
CPT/HCPCS: 36415; 74177; 76830; 76857; 80053; 81001; 81025; 83690; 83735; 85025; 93005; 93010; 93976; 96361; 96374; 96375; 96376; 99284; J2270; J2765; Q9967

== ENCOUNTER → 2023-02-07 07:54 | Outpatient (CLI) | payer OTHER, SELFPAY ==
--- NOTE | 2023-02-08 08:19 | DI.NM.S_ITS ---
DATE OF SERVICE: 02/07/2023 PROCEDURE: Exercise stress test. INDICATIONS: Palpitation, shortness of breath, dizziness. CARDIAC STRESS: Patient underwent exercise stress test under the supervision of an attending staff. The patient walked on Artemio protocol for 5 minutes and 34 seconds, achieved maximum heart rate of 160, which was 88% of target heart rate. Resting blood pressure 132/98 and peak blood pressure 176/96 mmHg. Achieved 7 METS of workload, MANDO positive 38%. Baseline rhythm was sinus. During stress, no convincing ischemic changes seen or significant arrhythmias seen. No chest pain or anginal symptoms. The patient felt fatigue and hip pain. CONCLUSION: Exercise stress test is negative for inducible ischemia. Mildly hypertensive at baseline. Normal hemodynamic response. Diminished exercise tolerance. Functional aerobic impairment positive 38%. No anginal symptoms. The patient had fatigue and hip pain. Malena Sarmiento - RENATE/mindi/sherice doc#: [id number]/job#: [id number] dd: 02/07/2023 16:44:00 dt: 02/07/2023 20:35:00 DICTATING /COPIES TO: Emily Orozco MD COPIES MNE: RASHAD;
== END ==
PROVIDERS: Family Provider Physician Assistant Medical; PCP Physician Assistant Medical; Referring Provider Internal Medicine Cardiovascular Disease; Visit Provider Internal Medicine Cardiovascular Disease
DX: R06.09 Other forms of dyspnea (principal)
CPT/HCPCS: 93017